=== PATIENT | female | born 2000 | race Caucasian/White ===

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

== ENCOUNTER 2022-07-22 22:41 | Emergency (ER) | payer MEDICAID, SELFPAY ==
[2022-07-22 22:42] VITALS: BP 109/71; PULSE 81; RESP 18; TEMP 37.1; O2SAT 98; BMI 20.1
[2022-07-22] MEDS: Morphine 4 MG/ML Syringe 6 MG IM (23:06)
[2022-07-22] MEDS: Ondansetron ODT 4 MG Tablet PO (23:06)
[2022-07-22] MEDS: Clindamycin HCl 150 MG Capsule 300 MG PO (23:06)
--- NOTE | 2022-07-23 00:05 | EX.ED.DYSGE1 ---
HPI History of Present Illness Chief Complaint: Abscess Narrative Narrative: Patient is a 21-year-old female with past medical history of POTS. She states that over the past 2 to 3 days she has noticed swelling and pain in the vaginal region. She states that today she noticed it was hard and she squeezed the area and states she got some pus out. She states despite this it is still painful and she is concerned that this is infected and may need antibiotics and therefore comes in for evaluation PFSH PFS Medical History Amenorrhea (05/06/21) Costochondritis History of concussion Iron deficiency anemia Leukopenia Home Medications prenat.vits,marika,[id number]-[id number]-[id number] 1 tab PO DAILY 06/11/21 [History Last Taken Unknown] clindamycin HCl 300 mg capsule (Cleocin HCl) 300 mg PO 4X/DAY 7 days #28 CAPSULES 07/23/22 [Rx Last Taken Unknown] hydrocodone-acetaminophen 5-325mg 5mg-325mg 1 tab PO Q6H PRN PRN Pain 3 days #12 TABLETS 07/23/22 [Rx Last Taken Unknown] Allergy/AdvReac Type Severity Reaction Status Date / Time Seasonal Allergies: Uncoded Allergy Intermediate SNEEZING, Verified 07/22/22 22:44 RUNNY NOSE fish derived AdvReac Intermediate NAUSEA/VOMI Verified 07/22/22 22:44 [seafood - derived] TING shellfish derived AdvReac Intermediate NAUSEA/VOMI Verified 07/22/22 22:44 [seafood - shellfish] TING Family History Father CAD (coronary artery disease) Myocardial infarction Mother Diabetes Hypertension Sister Diabetes Social History Smoking Status: Never smoker ROS ROS ED Constitutional Constitutional ED: Denies chills or fever(s) ENT ENT ED: Denies sore throat Cardiovascular Cardiovascular: Denies chest pain Respiratory/Chest Respiratory/Chest: Denies cough or dyspnea Gastrointestinal Gastrointestinal: Denies abdominal pain, diarrhea, nausea or vomiting Genitourinary Genitourinary ED: Reports other Details: Positive vaginal pain/swelling ; Denies dysuria or hematuria Musculoskeletal Musculoskeletal: Denies myalgias Integumentary Reports abscess Neurologic Neurologic: Denies headache(s) Hematologic/Lymphatic Hematologic/Lymphatic: Denies easy bleeding or easy bruising EXAM Physical Exam Const Vital Signs: 07/22/22 22:42 Temperature 98.7 F Temperature Source Temporal Pulse Rate 81 Respiratory Rate 18 Blood Pressure 109/71 Blood Pressure Mean 83 Pulse Ox 98 Oxygen Delivery Method Room Air Positive well nourished and well developed General Appearance ED: well developed Eyes PERRL and EOMs intact bilaterally Neck supple Resp normal respiratory effort and clear to auscultation bilaterally Cardio regular rate and regular rhythm Narrative: External genitalia shows swelling of the right labial tissue. There is a 1 x 1 cm area of induration and erythema along the midportion of the right labia consistent Bartholin cyst/abscess. There is no active discharge present. No vaginal bleeding. No surrounding soft tissue changes to suggest Jonathan's gangrene Extremity normal to inspection Neuro oriented x3 and CN's II-XII intact bilaterally Sensorium / Orientation: alert Psych mental status grossly normal Skin Skin Narrative: Soft tissue changes in the groin/genital region as documented above MDM MDM MDM Narrative Medical decision making narrative: Patient presented to the ER with stable vitals and no signs of systemic infection. Therefore I felt no need for imaging or laboratory studies. Differential diagnosis includes Bartholin cyst/abscess versus cellulitis versus STD such as herpes versus Jonathan's gangrene. The exam and history is most consistent with Bartholin cyst/abscess and therefore the area was incised and drained as documented below. As there is mild surrounding erythema and warmth she also be started on antibiotics secondary to concern for developing cellulitis. However at this time he does not have signs of systemic infection is otherwise safe for discharge Patient had the area/right labial tissue cleaned with chlorhexidine. It was anesthetized with 6 mL of 2% lidocaine with epinephrine in local fashion. A #11 blade was used to make a 1 cm incision over top the area of induration. A mild amount of blood in pure material was expressed. Loculations were dissected with a needle oropeza. The wound was copiously irrigated with normal saline. I attempted to place a Word catheter but the area is not large enough to hold the balloon and therefore was left open. Patient tolerated the procedure without complication History & Record Review Discussion w/independent historian: Patient and Significant other Discharge Plan Triage Chief Complaint: Abscess ED Provider: Deep Angel Dx/Rx/DC Orders Clinical Impression: Abscess of right Bartholin's gland, POTS (postural orthostatic tachycardia syndrome) Instructions: Bartholin Cyst and Abscess Prescriptions: New clindamycin HCl [Cleocin HCl] 300 mg capsule 300 mg PO 4X/DAY 7 Days Qty: 28 0RF hydrocodone-acetaminophen 5-325 mg tablet 1 tab PO Q6H PRN PRN (Reason: Pain) 3 Days Qty: 12 0RF No Action prenat.vits,marika,aer-nbsu-ekkol Tablet 1 tab PO DAILY Stand Alone Forms: ED Work / School Excuse Primary Care Provider: Blue Rivas Referrals: Blue Rivas DO [Primary Care Provider] - Activity Restrictions/Additional Instructions: Please follow-up with your DIRECTOR OF MARKETING [employer] for repeat evaluation and if you have any further concerns or feel like the area is returning to his previous size return to the ER for repeat evaluation Disposition Disposition: Home, Self Care Discharge Date/Time: 07/23/22 00:15
--- NOTE | 2022-07-23 00:06 | ED.RN ---
This RN at bedside with Dr Angel for vaginal exam and I&D of labial abscess. Pt tolerated well, pt cleaned up with water and towels and given a pad for drainage. Pt denies questions or needs at this time.
== END 2022-07-23 00:15 | disposition home or self-care (01) ==
PROVIDERS: Emergency Provider Emergency Medicine; PCP Student in an Organized Health Care Education/Training Program; Visit Provider Emergency Medicine
DX: N75.1 Abscess of Bartholin's gland (principal); I49.8 Other specified cardiac arrhythmias; Z79.899 Other long term (current) drug therapy
CPT/HCPCS: 56420; 96372; 99283

== ENCOUNTER 2023-07-11 13:51 | Observation (INO) | payer MEDICAID, SELFPAY ==
[2023-07-11] VITALS (10 sets, daily range): BP systolic 94–142; BP diastolic 57–81; PULSE 85–126; RESP 16–22; TEMP 36.4–37.2; O2SAT 94–99; BMI 23.1; BMI 24.0
--- NOTE | 2023-07-11 | POC_PTH ---
PATIENT: GARY GUAMAN LOC: [facility] U#:[id number] AGE/SX: 22/F ROOM: [facility] RE07/11/[address]: Dr. Akanksha Ospina MD : 2000 BED: 1 DIS: 07/12/2023 SPEC #: [id number] RECD: 07/12/23 10:56 STATUS: CHLOÉ JAVIER #: [id number] IVA: 07/11/23 00:[address]: Akanksha Ospina DEPT: SURGICAL PATHOLOGY RECD BY: Sabino Hewitt ENTERED: 07/12/23 10:56 SP TYPE: PROD CONC OTHR DR: Dr. Blue Rivas DO Tissues: Product of conception, NOS Procedures: Surgery Specimen Level IV HEADER OPERATION: Dilation and Curettage, Suction PRE-OP DIAGNOSIS: Retained products of conception TISSUE SUBMITTED: Retained products of conception x 2 containers MICROSCOPIC DIAGNOSIS Products of conception, dilation and curettage: Fragments of mature placental tissue, inflamed endometrial tissue and blood clots (retained products of conception). GAGAN: 07/13/2023 MICROSCOPIC DESCRIPTION Slides are reviewed. GROSS DESCRIPTION Received in fixative is two containers labeled with the patient's name and designated Products of conception. The specimen consists of multiple fragments of hemorrhagic soft tissue mixed with blood clots in two containers measuring in aggregate 13.0 x 12.0 x 4.0cm. No tissue is identified. Basic Combatant Swimmer tissue is submitted in three cassettes. GAGAN/ 07/12/23 TC:5 CPT:94551
--- NOTE | 2023-07-11 14:47 | ED.RN ---
this rn spoke with HALEY Benjamin in regards to pt and her vital signs. per Dr. Ospina, pt is to be seen in ED.
--- NOTE | 2023-07-11 14:49 | EDS_ITS ---
HPI <Dr. Cody Post MD - Last Filed: 07/11/23 18:06> HPI - Female History of Present Illness Chief Complaint: Vag Bleeding Detail of Chief Complaint: Vaginal bleeding status postdelivery Informant: patient Pain Pain: Positive for Pelvic Pain Onset: Days Context: Sudden Onset Timing: Intermittent Quality: Positive for Cramping Location: Suprapubic Current Severity: Gone Maximum Severity: Moderate Worsened by: - (Passing of clots) Relieved by: - (Nothing all I want is) Bleeding Issue: Positive for Vaginal bleeding and Passing clots Onset: Days Timing: Continuous Current Severity: Heavy Current pads/hr: 1 Maximum Severity: Heavy Associated Symptoms Associated Symptoms: Negative for Dysuria, Frequency, Urgency, Hematuria or Missed Period Control: No control P: 2 Ab: 0 Narrative Narrative: Patient is a female who delivered approxi-1 week ago. She states her blood pressure was elevated during . She went to [facility] emergency room on Tuesday. She was told that she would need D&C. After she was evaluated she was told she can go home and that this bleeding is expected. She states she is using a pad an hour. She does get intermittent orthostatic like dizziness. She denies shortness of breath with activity. She states she has cramping pain when she passes clots. There is no issues or concerns during or delivery. Delivery was vaginal. There was no episiotomy. Prior similar symptoms: Yes Recent Illness/Hospitalization: Yes [facility] <Dr. Cody Post MD - Last Filed: 07/11/23 18:06> [facility] Medical History Amenorrhea (05/06/21) Costochondritis History of concussion Iron deficiency anemia Leukopenia Home Medications sertraline 100 mg tablet 100 mg PO DAILY 07/11/23 [History Last Taken Unknown] Allergy/AdvReac Type Severity Reaction Status Date / Time Seasonal Allergies: Uncoded Allergy Intermediate SNEEZING, Verified 07/11/23 13:52 RUNNY NOSE fish derived AdvReac Intermediate NAUSEA/VOMI Verified 07/11/23 13:52 [seafood - derived] TING shellfish derived AdvReac Intermediate NAUSEA/VOMI Verified 07/11/23 13:52 [seafood - shellfish] TING Family History Father CAD (coronary artery disease) Myocardial infarction Mother Diabetes Hypertension Sister Diabetes Social History (Updated 07/11/23 @ 14:[address] Cody Post MD) household members: children Smoking Status: Never smoker ROS <Dr. Cody Post MD - Last Filed: 07/11/23 18:06> ROS ED Constitutional Constitutional ED: Denies chills, fever(s), subjective or sweats Eyes Eyes: Denies blurry vision or change in vision ENT ENT ED: Denies ear pain or rhinorrhea Cardiovascular Cardiovascular: Denies chest pain or palpitations Respiratory/Chest Respiratory/Chest: Denies cough, dyspnea or dyspnea on exertion Gastrointestinal Gastrointestinal: Reports abdominal pain; Denies nausea or vomiting Genitourinary Genitourinary ED: Denies dysuria, hematuria or urinary frequency Musculoskeletal Musculoskeletal: Denies arthralgias or myalgias Integumentary Denies rash Endocrine Endocrinology: Denies heat intolerance, polydipsia or polyuria Hematologic/Lymphatic Hematologic/Lymphatic: Denies easy bleeding or easy bruising EXAM <Dr. Cody Post MD - Last Filed: 07/11/23 18:06> Physical Exam Const Vital Signs: 07/11/23 14:36 07/11/23 16:08 07/11/23 18:00 Temperature 97.6 F L 98.6 F Temperature Source Temporal Oral Pulse Rate 126 H 103 H Pulse Rate [Lying] 85 Pulse Rate [Sitting (for 1 minute prior to obtaining)] 94 Pulse Rate [Standing (for 1 minute prior to obtaining)] 110 H Respiratory Rate 18 16 Respiratory Pattern Blood Pressure 142/73 H 120/81 H Blood Pressure [Lying] 107/69 Blood Pressure [Sitting (for 1 minute prior to obtaining)] 109/75 Blood Pressure [Standing (for 1 minute prior to obtaining)] 104/65 Blood Pressure Mean 96 94 Blood Pressure Mean [Lying] 81 Blood Pressure Mean [Sitting (for 1 minute prior to obtaining)] 86 Blood Pressure Mean [Standing (for 1 minute prior to obtaining)] 78 Blood Pressure Source Blood Pressure Position Blood Pressure Location Baseline BP Pulse Ox 96 99 Oxygen Delivery Method Room Air Room Air 07/11/23 19:52 07/11/23 22:20 07/11/23 22:25 Temperature 98.2 F 97.5 F L Temperature Source Temporal Pulse Rate 108 H 104 H 103 H Pulse Rate [Lying] Pulse Rate [Sitting (for 1 minute prior to obtaining)] Pulse Rate [Standing (for 1 minute prior to obtaining)] Respiratory Rate 22 H 16 16 Respiratory Pattern Normal Blood Pressure 113/68 94/57 L 103/68 Blood Pressure [Lying] Blood Pressure [Sitting (for 1 minute prior to obtaining)] Blood Pressure [Standing (for 1 minute prior to obtaining)] Blood Pressure Mean 83 69 79 Blood Pressure Mean [Lying] Blood Pressure Mean [Sitting (for 1 minute prior to obtaining)] Blood Pressure Mean [Standing (for 1 minute prior to obtaining)] Blood Pressure Source Monitor Monitor Blood Pressure Position Supine Sitting Blood Pressure Location Right Arm Right Arm Baseline BP 120/81 120/81 Pulse Ox 97 94 96 Oxygen Delivery Method Room Air Room Air 07/11/23 22:30 Temperature Temperature Source Pulse Rate 93 Pulse Rate [Lying] Pulse Rate [Sitting (for 1 minute prior to obtaining)] Pulse Rate [Standing (for 1 minute prior to obtaining)] Respiratory Rate 16 Respiratory Pattern Blood Pressure 98/61 Blood Pressure [Lying] Blood Pressure [Sitting (for 1 minute prior to obtaining)] Blood Pressure [Standing (for 1 minute prior to obtaining)] Blood Pressure Mean 73 Blood Pressure Mean [Lying] Blood Pressure Mean [Sitting (for 1 minute prior to obtaining)] Blood Pressure Mean [Standing (for 1 minute prior to obtaining)] Blood Pressure Source Monitor Blood Pressure Position Sitting Blood Pressure Location Right Arm Baseline BP 120/81 Pulse Ox 95 Oxygen Delivery Method Room Air Positive well nourished and well developed Constitutional Narrative: Patient's vitals are remarkable and elevated blood pressure and tachycardia. General Appearance ED: well developed, NAD and pallor; Negative for odor of alcohol detected HEENT Reports TM's clear and moist mucous membranes HEENT Narrative: Head is atraumatic normocephalic. Ears normal. Posterior pharynx is normal. Tympanic Membrane ED: Yes TM's clear Eyes PERRL and EOMs intact bilaterally General Eye ED: Negative for pale conjunctiva or scleral icterus Neck no lymphadenopathy, supple and no JVD Chest Wall inspection of chest normal and palpation of chest normal Resp normal respiratory effort and clear to auscultation bilaterally Cardio regular rhythm, S1 normal heart sound, no murmurs and no JVD Rate: tachycardic GI normal to inspection, nondistended, normoactive bowel sounds, soft to palpation, non-distended and no masses; Negative for non-tender GI Narrative: Patient complains of lower midline abdominal pain to palpation. Auscultation: normoactive bowel sounds Back/Spine no CVA tenderness Extremity normal to inspection and full ROM Neuro oriented x3 and CN's II-XII intact bilaterally Sensorium / Orientation: alert Psych mental status grossly normal Skin no rashes or lesions noted and no wounds General Skin Exam: pallor; Negative for jaundice <Eulalio Christina MD - Last Filed: 07/11/23 23:08> Physical Exam Const Vital Signs: 07/11/23 14:36 07/11/23 16:08 07/11/23 18:00 Temperature 97.6 F L 98.6 F Temperature Source Temporal Oral Pulse Rate 126 H 103 H Pulse Rate [Lying] 85 Pulse Rate [Sitting (for 1 minute prior to obtaining)] 94 Pulse Rate [Standing (for 1 minute prior to obtaining)] 110 H Respiratory Rate 18 16 Respiratory Pattern Blood Pressure 142/73 H 120/81 H Blood Pressure [Lying] 107/69 Blood Pressure [Sitting (for 1 minute prior to obtaining)] 109/75 Blood Pressure [Standing (for 1 minute prior to obtaining)] 104/65 Blood Pressure Mean 96 94 Blood Pressure Mean [Lying] 81 Blood Pressure Mean [Sitting (for 1 minute prior to obtaining)] 86 Blood Pressure Mean [Standing (for 1 minute prior to obtaining)] 78 Blood Pressure Source Blood Pressure Position Blood Pressure Location Baseline BP Pulse Ox 96 99 Oxygen Delivery Method Room Air Room Air 07/11/23 19:52 07/11/23 22:20 07/11/23 22:25 Temperature 98.2 F 97.5 F L Temperature Source Temporal Pulse Rate 108 H 104 H 103 H Pulse Rate [Lying] Pulse Rate [Sitting (for 1 minute prior to obtaining)] Pulse Rate [Standing (for 1 minute prior to obtaining)] Respiratory Rate 22 H 16 16 Respiratory Pattern Normal Blood Pressure 113/68 94/57 L 103/68 Blood Pressure [Lying] Blood Pressure [Sitting (for 1 minute prior to obtaining)] Blood Pressure [Standing (for 1 minute prior to obtaining)] Blood Pressure Mean 83 69 79 Blood Pressure Mean [Lying] Blood Pressure Mean [Sitting (for 1 minute prior to obtaining)] Blood Pressure Mean [Standing (for 1 minute prior to obtaining)] Blood Pressure Source Monitor Monitor Blood Pressure Position Supine Sitting Blood Pressure Location Right Arm Right Arm Baseline BP 120/81 120/81 Pulse Ox 97 94 96 Oxygen Delivery Method Room Air Room Air 07/11/23 22:30 Temperature Temperature Source Pulse Rate 93 Pulse Rate [Lying] Pulse Rate [Sitting (for 1 minute prior to obtaining)] Pulse Rate [Standing (for 1 minute prior to obtaining)] Respiratory Rate 16 Respiratory Pattern Blood Pressure 98/61 Blood Pressure [Lying] Blood Pressure [Sitting (for 1 minute prior to obtaining)] Blood Pressure [Standing (for 1 minute prior to obtaining)] Blood Pressure Mean 73 Blood Pressure Mean [Lying] Blood Pressure Mean [Sitting (for 1 minute prior to obtaining)] Blood Pressure Mean [Standing (for 1 minute prior to obtaining)] Blood Pressure Source Monitor Blood Pressure Position Sitting Blood Pressure Location Right Arm Baseline BP 120/81 Pulse Ox 95 Oxygen Delivery Method Room Air [facility] <Dr. Cody Post MD - Last Filed: 07/11/23 18:06> [facility] Narrative Medical decision making narrative: Will perform pelvic exam to see if patient has a tear of explain her bleeding otherwise she will need to obtain ultrasound to evaluate for retained products. CBC was obtained to assess H&H and platelet count. Orthostatic vital signs because she complains of intermittent orthostatic lightheadedness. Furthermore she is tachycardic. History & Record Review Additional record(s) reviewed:: Prior outpatient record (Unable to obtain transcribed ER note from July 07. Hemoglobin was 8.8 and 25.5. On July 05 H&H was 10.4 and 31.3.) Lab Data Labs: Laboratory Results - last 24 hr 07/11/23 15:20 WBC 12.4 H RBC 3.34 L Hgb 8.3 L Hct 26.3 L MCV 78.7 L MCH 24.9 L MCHC 31.6 L RDW Std Deviation 47.6 H RDW Coeff of Seda 16.8 H Plt Count 245 MPV 10.8 Patient's hemoglobin has decreased by approximately 1.9 g. Radiography Diagnostic Testing: Clinical Impression(s) from Imaging Studies Pelvis Ultrasound 07/11/23 15:29 IMPRESSION: Findings consistent with retained products of conception as above. Enlarged uterus consistent with recent . Electronically Signed: Josr Boyce MD at 16:57 EDT , <Eulalio Christina MD - Last Filed: 07/11/23 23:08> [facility] Narrative Medical decision making narrative: Will perform pelvic exam to see if patient has a tear of explain her bleeding otherwise she will need to obtain ultrasound to evaluate for retained products. CBC was obtained to assess H&H and platelet count. Orthostatic vital signs because she complains of intermittent orthostatic lightheadedness. Furthermore she is tachycardic. Dr. Christina: Patient endorsed to me by Dr. Cody Post to check the ultrasound results of this patient who is having bleeding and passage of clots. I reviewed her laboratory work and she has a hemoglobin of 8.3. It was reported by Dr. Post that she had dropped from 10 from previous laboratory values that he reviewed. In review of the ultrasound report, there is echogenic material at the fundus of the uterus consistent with retained products of conception. I spoke with the nurse proof plate maker on-call for [facility], who suggested that the RECOATER on-call here be contacted regarding dilation and curettage. I then spoke with Dr. Ospina. Patient had a large meal at around 1:00 so they would like to wait 8 hours before anesthesia and procedure. The plan is to take her to the OR at approximately 2100. Disposition is admit to the OR. Patient was made NPO. She is in stable condition. Lab Data Attestation: I reviewed the patient's lab results. Labs: Laboratory Results - last 24 hr 07/11/23 15:20 WBC 12.4 H RBC 3.34 L Hgb 8.3 L Hct 26.3 L MCV 78.7 L MCH 24.9 L MCHC 31.6 L RDW Std Deviation 47.6 H RDW Coeff of Seda 16.8 H Plt Count 245 MPV 10.8 Radiography Diagnostic Testing: Clinical Impression(s) from Imaging Studies Pelvis Ultrasound 07/11/23 15:29 IMPRESSION: Findings consistent with retained products of conception as above. Enlarged uterus consistent with recent . Electronically Signed: Josr Boyce MD at 16:57 EDT , Discharge Plan Dx/Rx/DC Orders Clinical Impression: Retained products of conception, , Vaginal bleeding, Drop in hemoglobin, Anemia due to acute blood loss Disposition Disposition: Acute Care Hospital [facility] Discharge Date/Time: 07/11/23 19:57
--- NOTE | 2023-07-11 15:29 | US_ITS ---
STUDY: ULTRASOUND OF THE FEMALE PELVIS - COMPLETE REASON FOR EXAM: Female, 22 years old. bleeding evaluate retained products. Patient delivered on 07/06/2023. LMP: TECHNIQUE: Transabdominal TECHNICAL QUALITY: Adequate. COMPARISON: None. FINDINGS: The uterus is anteverted and is in a midline position. The uterus measures 16.3 x 11.2 x 7.7 cm. Normal uterine cervix. Complex heterogeneous endometrial echoes as thick as 3.9 cm in the fundus with vascularity. Findings are consistent with retained products of conception. Small amount of fluid in the endocervical canal. There is no demonstrated myometrial mass. The right ovary is visualized. The right ovary measures 2.5 x 2.4 x 1.3 cm. There is no right ovarian cyst or ovarian mass. There is no visualized right adnexal mass or complex lesion. There is normal arterial and normal venous vascularity. The left ovary is non-visualized. There is no fluid in the cul-de-sac. The pre void volume of the bladder was 249 ml. US/Pelvic (Non ) IMPRESSION: Findings consistent with retained products of conception as above. Enlarged uterus consistent with recent . Electronically Signed: Josr Boyce MD at 16:57 EDT ,
[2023-07-11 15:35] LABS: Hematocrit 26.3 % (37-47); Hemoglobin 8.3 g/dL (12.0-15.0); Mean Corp Hgb Conc 31.6 g/dL (32-36); Mean Corpuscular Hgb 24.9 pg (27.0-32.0); Mean Corpuscular Volume 78.7 fL (81-99); Mean Platelet Vol. 10.8 fl (6.2-12.0); Platelet Count 245 K/mm3 (150-450); RBC Distribution Width CV 16.8 % (11.6-14.6); RBC Distribution Width SD 47.6 fl (35.1-43.9); Red Blood Count 3.34 M/mm3 (4.2-5.4); White Blood Count 12.4 K/mm3 (4.4-11.0)
[2023-07-11] MEDS: Morphine 4 MG/ML Syringe IV (19:50)
[2023-07-11] MEDS: Methylergonovine 0.2 MG/ML Ampul IM (21:56)
[2023-07-11] MEDS: miSOPROStol 200 MCG Tablet (22:06)
[2023-07-11 23:04] LABS: Absolute Lymphocyte Count 1.56 X10^3/uL (0.83-4.51); Absolute Neutrophil Count 8.9 X10^3/uL (2.0-7.7); Basophil# 0.06 X10^3/uL; Basophil% 0.5 % (0-1); Eosinophil# 0.51 X10^3/uL; Eosinophils% 4.3 % (0-5); Hematocrit 26.7 % (37-47); Hemoglobin 8.4 g/dL (12.0-15.0); Lymphocyte # 1.56 X10^3/ul (0.83-4.51); Lymphocyte % 13.1 % (19-41); Mean Corp Hgb Conc 31.5 g/dL (32-36); Mean Corpuscular Hgb 24.9 pg (27.0-32.0); Mean Platelet Vol. 11.3 fl (6.2-12.0); Monocyte# 0.74 X10^3/uL; Monocyte% 6.2 % (0-10); NRBC Flagged by Analyzer 0.2 % (0-5); Neutrophil # 8.85 X10^3/uL (2.7-7.7); Neutrophil % 74.5 % (47-70); Platelet Count 247 K/mm3 (150-450); RBC Distribution Width CV 16.8 % (11.6-14.6); RBC Distribution Width SD 47.9 fl (35.1-43.9); Red Blood Count 3.38 M/mm3 (4.2-5.4); White Blood Count 11.9 K/mm3 (4.4-11.0)
[2023-07-11] MEDS: Acetaminophen 500 MG Tablet 1000 MG PO (23:42)
[2023-07-12 01:15] VITALS: BP 117/68; PULSE 96; RESP 18; TEMP 37.1; O2SAT 98
--- NOTE | 2023-07-12 01:59 | HP.PCM.OB_ITS ---
HPI - General General Date of Admission: 07/11/23 Date of Service: 07/11/23 Chief Complaint: Retained POC HPI Narrative GARY GUAMAN, is a 22 F who presents One week from spontaneous vaginal delivery at [facility]. Increased bleeding at home and seen in ED and discharged after passing a blood clot 4 days ago. Continued to bleed and passing clots today. In [place] ED Hgb 8.3 and POC found on ultrasound. PFSH PFSH Medical History Amenorrhea (05/06/21) Costochondritis History of concussion Iron deficiency anemia Leukopenia Home Medications sertraline 100 mg tablet 100 mg PO DAILY 07/11/23 [History Last Taken Unknown] Allergy/AdvReac Type Severity Reaction Status Date / Time Seasonal Allergies: Uncoded Allergy Intermediate SNEEZING, Verified 07/11/23 13:52 RUNNY NOSE fish derived AdvReac Intermediate NAUSEA/VOMI Verified 07/11/23 13:52 [seafood - derived] TING shellfish derived AdvReac Intermediate NAUSEA/VOMI Verified 07/11/23 13:52 [seafood - shellfish] TING Family History Father CAD (coronary artery disease) Myocardial infarction Mother Diabetes Hypertension Sister Diabetes Social History household members: children Smoking Status: Never smoker History 2 Elective abortions Hx Para 2 Spontaneous abortions Hx # Term Pregnancies Ectopic pregnancies Hx # Pregnancies Multiple births # of living children ROS Constitutional Constitutional: Denies fever(s) ENT HEENT: Denies headache(s) Cardiovascular Cardiovascular: Reports lightheadedness Respiratory/Chest Respiratory/Chest: Denies shortness of breath at rest Gastrointestinal Gastrointestinal: Denies abdominal pain or constipation Musculoskeletal Musculoskeletal: Denies back pain or difficulty walking Neurologic Neurologic: Denies confusion or headache(s) Psychiatric Psychiatric: Denies depression Vital Signs Vital Signs Vital Signs: 07/11/23 14:36 07/11/23 16:08 07/11/23 18:00 Temperature 97.6 F L 98.6 F Temperature Source Temporal Oral Pulse Rate 126 H 103 H Pulse Rate [Lying] 85 Pulse Rate [Sitting (for 1 minute prior to obtaining)] 94 Pulse Rate [Standing (for 1 minute prior to obtaining)] 110 H Respiratory Rate 18 16 Respiratory Effort Respiratory Depth Respiratory Pattern Blood Pressure 142/73 H 120/81 H Blood Pressure [Lying] 107/69 Blood Pressure [Sitting (for 1 minute prior to obtaining)] 109/75 Blood Pressure [Standing (for 1 minute prior to obtaining)] 104/65 Blood Pressure Mean 96 94 Blood Pressure Mean [Lying] 81 Blood Pressure Mean [Sitting (for 1 minute prior to obtaining)] 86 Blood Pressure Mean [Standing (for 1 minute prior to obtaining)] 78 Blood Pressure Source Blood Pressure Position Blood Pressure Location Baseline BP Pulse Ox 96 99 Oxygen Delivery Method Room Air Room Air 07/11/23 19:52 07/11/23 22:20 07/11/23 22:25 Temperature 98.2 F 97.5 F L Temperature Source Temporal Pulse Rate 108 H 104 H 103 H Pulse Rate [Lying] Pulse Rate [Sitting (for 1 minute prior to obtaining)] Pulse Rate [Standing (for 1 minute prior to obtaining)] Respiratory Rate 22 H 16 16 Respiratory Effort Respiratory Depth Respiratory Pattern Normal Blood Pressure 113/68 94/57 L 103/68 Blood Pressure [Lying] Blood Pressure [Sitting (for 1 minute prior to obtaining)] Blood Pressure [Standing (for 1 minute prior to obtaining)] Blood Pressure Mean 83 69 79 Blood Pressure Mean [Lying] Blood Pressure Mean [Sitting (for 1 minute prior to obtaining)] Blood Pressure Mean [Standing (for 1 minute prior to obtaining)] Blood Pressure Source Monitor Monitor Blood Pressure Position Supine Sitting Blood Pressure Location Right Arm Right Arm Baseline BP 120/81 120/81 Pulse Ox 97 94 96 Oxygen Delivery Method Room Air Room Air 07/11/23 22:30 07/11/23 22:35 07/11/23 22:45 Temperature 98.3 F Temperature Source Temporal Pulse Rate 93 96 96 Pulse Rate [Lying] Pulse Rate [Sitting (for 1 minute prior to obtaining)] Pulse Rate [Standing (for 1 minute prior to obtaining)] Respiratory Rate 16 18 16 Respiratory Effort Respiratory Depth Respiratory Pattern Blood Pressure 98/61 101/63 113/63 Blood Pressure [Lying] Blood Pressure [Sitting (for 1 minute prior to obtaining)] Blood Pressure [Standing (for 1 minute prior to obtaining)] Blood Pressure Mean 73 75 79 Blood Pressure Mean [Lying] Blood Pressure Mean [Sitting (for 1 minute prior to obtaining)] Blood Pressure Mean [Standing (for 1 minute prior to obtaining)] Blood Pressure Source Monitor Monitor Monitor Blood Pressure Position Sitting Sitting Supine Blood Pressure Location Right Arm Right Arm Right Arm Baseline BP 120/81 120/81 120/81 Pulse Ox 95 96 98 Oxygen Delivery Method Room Air Room Air Room Air 07/12/23 00:59 Temperature Temperature Source Pulse Rate Pulse Rate [Lying] Pulse Rate [Sitting (for 1 minute prior to obtaining)] Pulse Rate [Standing (for 1 minute prior to obtaining)] Respiratory Rate Respiratory Effort Normal Non-Labored Respiratory Depth Normal Respiratory Pattern Normal Blood Pressure Blood Pressure [Lying] Blood Pressure [Sitting (for 1 minute prior to obtaining)] Blood Pressure [Standing (for 1 minute prior to obtaining)] Blood Pressure Mean Blood Pressure Mean [Lying] Blood Pressure Mean [Sitting (for 1 minute prior to obtaining)] Blood Pressure Mean [Standing (for 1 minute prior to obtaining)] Blood Pressure Source Blood Pressure Position Blood Pressure Location Baseline BP Pulse Ox Oxygen Delivery Method Room Air Weight Weight: 63.7 kg Body Mass Index (BMI) 24.0 Physical Exam Const alert and oriented x3 General Appearance: cooperative and comfortable HEENT normocephalic Eyes PERRL and EOMs intact bilaterally Neck full ROM Resp normal respiratory effort Cardio regular rate GI non-distended and no masses external exam normal Extremity normal to inspection Skin no rashes or lesions noted Neuro moves all extremities Labs Labs Labs: Blood Type O POSITIVE Antibody Screen NEGATIVE Hct 26.7 % (37-47) L Hgb 8.4 g/dL (12.0-15.0) L Obstetrics Ultrasound Assessment & Plan (1) Retained products of conception, : (2) Anemia due to acute blood loss: PLAN: Plan D&C for retained POC
--- NOTE | 2023-07-12 02:03 | PCM.OPRPT ---
Problems Associated Problem List Diagnoses (1) Anemia due to acute blood loss: (2) Retained products of conception, : Report of Operation Date of Procedure: 07/11/23 Pre-Operative Diagnosis: Retained POC one week Post-Operative Diagnosis: same Surgery/Procedure Performed:: Suction D&C Description of Surgical Findings:: moderated amount of membranes and placental tissue Surgeon: Akanksha Ospina Type of Anesthesia: MAC Anesthesiologist: Ehsan Corona Special Medications: Methrgine and cytotec Specimen's removed: Products of conception Estimated Blood Loss (mL): 400 cc Fluids Replaced: 1000 cc Description of Procedure: Patient was taken to the OR and placed in a dorsal supine position. Anesthesia was induced and she was placed in dorsal lithotomy position. Then prepped and draped in a normal sterile fashion.A weighted speculum was placed and the cervix grasped with a single tooth tenaculum. The uterine cavity measured 15 cm. A #12 straight curette was used ti evacuate the uterine cavity. A moderate amount of tissue was removed. The cavity was sharply curetted and the suction once again use to evacuate the cavity. This was done several times. Bleeding continued to be brisk. Methergine was administered. A sharp curette was once again introduced and a large piece of membrane was removed from the right cornua. Bleeding decreased after this was removed. She was also given 1000mcg of Cytotec rectally. All sponge lap and needle counts were correct. Procedure Start Time: 21:33 Procedure Stop Time: 22:12 Complications excessive blood loss Admit VTE Documentation VTE Mechan Device Prophylaxis: SCD's
[2023-07-12 06:00] VITALS: BP 111/60; PULSE 80; RESP 18; TEMP 37.1; O2SAT 98
[2023-07-12] MEDS: Acetaminophen 500 MG Tablet 1000 MG PO (06:11)
--- NOTE | 2023-07-12 07:35 | PCM.PN.OB ---
Subjective Subjective States she feels better. Has been up to restroom without dizziness. One pad over night per nursing not full. VVS Was tachycardic on presentation. But that has now resolved. Hgb 8.3 on presentation. Waiting for AM labs. Discussed possible blood transfusion if hgb below 6 given intraop blood loss. Patient is agreeable. Does have a RX for iron at home. Objective Data Objective Data Vital Signs: Vital Signs Temp Pulse Resp BP Pulse Ox O2 Del Method 98.7 F 80 18 111/60 98 Room Air 07/12/23 06:00 07/12/23 06:00 07/12/23 06:00 07/12/23 06:00 07/12/23 06:00 07/12/23 06:36 Oxygen Delivery Method Room Air Weight: 63.7 kg Body Mass Index (BMI) 24.0 Intake & Output: Intake and Output for Last 24 Hours 07/10/23 07/11/23 07/12/23 23:59 23:59 23:59 Intake Total 400 / 400 Output Total 200 / 200 Balance -200 / -200 400 / 400 Lab / Micro Data 07/11/23 22:55 Labs: Laboratory Results - last 24 hr 07/11/23 15:20: WBC 12.4 H, RBC 3.34 L, Hgb 8.3 L, Hct 26.3 L, MCV 78.7 L, MCH 24.9 L, MCHC 31.6 L, RDW Std Deviation 47.6 H, RDW Coeff of Seda 16.8 H, Plt Count 245, MPV 10.8 07/11/23 22:55: WBC 11.9 H, RBC 3.38 L, Hgb 8.4 L, Hct 26.7 L, MCV 79.0 L, MCH 24.9 L, MCHC 31.5 L, RDW Std Deviation 47.9 H, RDW Coeff of Seda 16.8 H, Plt Count 247, MPV 11.3, Immature Gran % (Auto) 1.400 H, Neut % (Auto) 74.5 H, Lymph % (Auto) 13.1 L, Lewis % (Auto) 6.2, Eos % (Auto) 4.3, Baso % (Auto) 0.5, Absolute Neuts (auto) 8.9 H, Absolute Lymphs (auto) 1.56, Nucleated RBC % 0.2, Blood Type O POSITIVE, Antibody Screen NEGATIVE Radiography Diagnostic Testing: Radiology Impression Pelvis Ultrasound 07/11/23 15:29 IMPRESSION: Findings consistent with retained products of conception as above. Enlarged uterus consistent with recent . Electronically Signed: Josr Boyce MD at 16:57 EDT , ROS Constitutional Constitutional: Denies headache(s) or lethargy Cardiovascular Cardiovascular: Denies dizziness, dyspnea on exertion or pounding heartbeat Respiratory/Chest Respiratory/Chest: Denies dyspnea Genitourinary Genitourinary: Denies abdominal discomfort Neurologic Neurologic: Denies dizziness Physical Exam Const alert, oriented x3 and no apparent distress General Appearance: cooperative and comfortable HEENT normocephalic and head/scalp atraumatic Eyes PERRL and EOMs intact bilaterally Neck full ROM Resp normal respiratory effort GI soft to palpation, non-tender and non-distended Extremity normal to inspection and no pedal edema Neuro oriented x3 and CN's II-XII intact bilaterally Psych mental status grossly normal Assessment & Plan (1) Anemia due to acute blood loss: PLAN: Awaiting AM results. May need blood products vs iron (2) Retained products of conception, : (3) S/P dilation and curettage:
[2023-07-12 08:28] LABS: Hematocrit 24.4 % (37-47); Hemoglobin 7.4 g/dL (12.0-15.0); Mean Corp Hgb Conc 30.3 g/dL (32-36); Mean Corpuscular Hgb 24.1 pg (27.0-32.0); Mean Corpuscular Volume 79.5 fL (81-99); Mean Platelet Vol. 10.7 fl (6.2-12.0); Platelet Count 240 K/mm3 (150-450); RBC Distribution Width CV 16.6 % (11.6-14.6); RBC Distribution Width SD 47.7 fl (35.1-43.9); Red Blood Count 3.07 M/mm3 (4.2-5.4); White Blood Count 11.2 K/mm3 (4.4-11.0)
--- NOTE | 2023-07-12 08:33 | DS.PCM_ITS ---
Providers Date of Admission: 07/11/23 Date of Discharge: 07/12/23 Primary Care Physician: Dr. Blue Rivas DO Reason For Visit: SUCTION DILATION AND CURETTAGE; HEMORRHAGE Diagnosis Discharge Diagnosis (1) Anemia due to acute blood loss: Status: Acute Code(s): D62 - Acute posthemorrhagic anemia Plan: Awaiting AM results. May need blood products vs iron (2) Retained products of conception, : Status: Acute Code(s): O72.0 - Third-stage hemorrhage (3) S/P dilation and curettage: Status: Acute Code(s): Z98.890 - Other specified postprocedural states Medications at Discharge Home Medications sertraline 100 mg tablet 100 mg PO DAILY 07/11/23 Hospital Course Operations - (D&C) Summary of Care Provided Minutes Spent on Discharge: 20 Hospital Course: Presented to ED with significant vaginal bleeding one week post vaginal delivery. POC found on U/S. Hgb 8.3 down from 10 PP. Underwent a D&C to remove P OC. Intra op blood loss 400 cc. Did receive Methergine and Cytotec in OR. Observation overnight for increased blood loss. AM Hgb 7.4. Patient already has a Rx for iron. Physical Exam Const alert, oriented x3 and no apparent distress General Appearance: cooperative and comfortable HEENT normocephalic and head/scalp atraumatic Eyes PERRL and EOMs intact bilaterally Neck full ROM Resp normal respiratory effort GI soft to palpation, non-tender and non-distended Extremity normal to inspection and no pedal edema Neuro oriented x3 and CN's II-XII intact bilaterally Psych mental status grossly normal Weight / BMI Weight Weight: 63.7 kg Body Mass Index (BMI) 24.0 ABG / Lab / Microbiology Data 07/12/23 07:37 Laboratory: Laboratory Results - last 24 hr 07/11/23 15:20: WBC 12.4 H, RBC 3.34 L, Hgb 8.3 L, Hct 26.3 L, MCV 78.7 L, MCH 24.9 L, MCHC 31.6 L, RDW Std Deviation 47.6 H, RDW Coeff of Seda 16.8 H, Plt Count 245, MPV 10.8 07/11/23 22:55: WBC 11.9 H, RBC 3.38 L, Hgb 8.4 L, Hct 26.7 L, MCV 79.0 L, MCH 24.9 L, MCHC 31.5 L, RDW Std Deviation 47.9 H, RDW Coeff of Seda 16.8 H, Plt Count 247, MPV 11.3, Immature Gran % (Auto) 1.400 H, Neut % (Auto) 74.5 H, Lymph % (Auto) 13.1 L, Granite % (Auto) 6.2, Eos % (Auto) 4.3, Baso % (Auto) 0.5, Absolute Neuts (auto) 8.9 H, Absolute Lymphs (auto) 1.56, Nucleated RBC % 0.2, Blood Type O POSITIVE, Antibody Screen NEGATIVE 07/12/23 07:37: WBC 11.2 H, RBC 3.07 L, Hgb 7.4 L, Hct 24.4 L, MCV 79.5 L, MCH 24.1 L, MCHC 30.3 L, RDW Std Deviation 47.7 H, RDW Coeff of Seda 16.6 H, Plt Count 240, MPV 10.7 Radiography Diagnostic Testing: Radiology Impression Pelvis Ultrasound 07/11/23 15:29 IMPRESSION: Findings consistent with retained products of conception as above. Enlarged uterus consistent with recent . Electronically Signed: Josr Boyce MD at 16:57 EDT , D/C Instructions Discharge Diet: No restrictions Discharge Activity: Return to Normal Activity and May Shower May resume sexual activity in: 6 weeks Additional Instructions: Needs OBGYN visit sooner than 6 weeks When: Your OBGYN 1-2 weeks Meaningful Use Info Meaningful Use Meaningful Use Diagnoses (Choose all that apply): None applicable Ischemic Stroke Statin Dosing Therapy Reference: STATIN DOSE THERAPY REFERENCE: * Patients > 75 years receive moderate or high dose statin therapy. * Patients 75 years or YOUNGER should receive HIGH intensity statin dose unless contraindicated. You will be required to document reason for non-treatment if statin daily dose does not meet guidelines. HIGH DOSE STATIN THERAPY DAILY Atorvastatin > than or = to 40 mg Rosuvastatin > than or = to 20 mg Amlodipine + Atorvastatin > than or = to 2.5/40 mg Ezetimibe + Simvastatin 10/80 mg Simvastatin 80mg Discharge Plan Admission Admit Date/Time: 07/11/23 22:32 Primary Reason for Your Visit: Post bleeding Attending Provider: Akanksha Ospina Primary Care Provider: Blue Rivas Instructions Additional Instructions / Restrictions: Needs to followup with OBGYN in 1-2 weeks. If bleeding more than a pad an hour needs to return to ED Discharge Orders/Prescriptions Prescriptions: No Action sertraline 100 mg tablet 100 mg PO DAILY Referrals / Follow Up: Blue Rivas DO [Primary Care Provider] - Disposition Disposition (needs filled in before D/C Order can be placed): Home, Self Care
[2023-07-12 09:00] VITALS: BP 101/51; PULSE 97; RESP 16; TEMP 37; O2SAT 99
--- NOTE | 2023-07-12 09:08 | PHA.DC.MR.R ---
Pharmacy [place] Med Reconciliation Pharmacy Service has performed discharge medication reconciliation for this patient. The patient's discharge medication list was reviewed for discrepancies and discrepancies were resolved. Medications at Discharge Home Medications sertraline 100 mg tablet 100 mg PO DAILY 07/11/23
--- NOTE | 2023-07-12 10:18 | CASEMGMT ---
Patient has order for discharge. RN CM in to discuss needs at discharge. Patient and spouse deny needs or help at home. Patient had no further questions or concerns.
== END 2023-07-12 08:32 | disposition home or self-care (01) ==
LOC: ED 17:50 → SDC 18:55 → PCU 22:55
PROVIDERS: Admitting Provider Obstetrics & Gynecology; Emergency Provider Emergency Medicine; PCP Student in an Organized Health Care Education/Training Program; Visit Provider Obstetrics & Gynecology
PROC: (CPT 59160; principal; 2023-07-11 20:00)
DX: O72.2 Delayed and secondary postpartum hemorrhage (principal); O90.81 Anemia of the puerperium; D62 Acute posthemorrhagic anemia
CPT/HCPCS: 59160; 00940; 76830; 36415; 76856; 85025; 85027; 86850; 86900; 86901; 88305; 96374; 99221; 99285; A4216; G0378; J2405